=== PATIENT | male | born 1985 | race Two or more races ===

== ENCOUNTER 2022-11-17 11:17 | Emergency (ER) | payer OTHER ==
[~2022-11-17] VITALS: Ht 170.2 cm; Wt 66.7 kg
[2022-11-17] MEDS ORDERED: CLEOCIN HCL300 MG PO (11:40)
[2022-11-17] MEDS ORDERED: MECLIZINE HCL25 MG PO (12:27)
== END 2022-11-17 12:39 | disposition home or self-care (01) ==
LOC: ER 11:17
DX: K08.89 Other specified disorders of teeth and supporting structures (principal); J45.909 Unspecified asthma, uncomplicated; G43.809 Other migraine, not intractable, without status migrainosus; R42 Dizziness and giddiness